=== PATIENT | female | born 1975 | race Caucasian/White ===

== ENCOUNTER 2019-07-21 14:05 | Emergency (ER) | payer BC, OTHER ==
--- NOTE | 2019-07-21 14:56 | ED ---
Neck Pain - HPI Summary HPI Summary: 43-year-old female presents to the emergency department today complaining of some nontender neck pain after falling off her horse and landing on her neck 2 days ago. Patient denies loss of consciousness or amnesia and was ambulatory after the event. She states the pain is Worse since the accident and has began to radiate down her right arm which is causing numbness and weakness. Patient has been taking ibuprofen prior to arrival for pain. Patient has full range of motion of her right arm and decreased range of motion of her neck due to pain. Patient is neurovascularly intact. Family history and surgical history noncontributory. Patient denies fever, chest pain, abdominal pain, pain with urination, changes in vision, headache. - History of Current Complaint Chief Complaint: EDFall Stated Complaint: FALL NECK PAIN Time Seen by Provider: 07/21/19 14:43 Hx Obtained From: Patient Onset/Duration Of Injury/Symptoms: Days Mechanism Of Injury: Blunt Trauma Timing: Constant, Lasting Days Onset/Duration: Started days ago Severity Initially: Severe Severity Currently: Severe Pain Intensity: 7 Pain Scale Used: 0-10 Numeric Location: Discrete At: - neck Character: Aching, Stiff Aggravating Factors: Movement, Medication Alleviating Factors: Position, OTC Meds Associated Signs & Symptoms: Positive: Weakness, Paresthesia. Negative: Swelling, Redness, Fever, Nuchal Rigity, Headache - Allergies/Home Medications Allergies/Adverse Reactions: Allergies Allergy/AdvReac Type Severity Reaction Status Date / Time latex Allergy Rash Verified 07/21/19 15:50 PMH/Surg Hx/FS Hx/Imm Hx Respiratory History: Reports: Hx Asthma Infectious Disease History: No Infectious Disease History: Denies: Traveled Outside the [place] in Last 30 Days - Social History Alcohol Use: None Substance Use Type: Reports: None Smoking Status (MU): Never Smoked Tobacco Have You Smoked in the Last Year: No Review of Systems Constitutional: Negative Eyes: Negative ENT: Negative Cardiovascular: Negative Respiratory: Negative Gastrointestinal: Negative Genitourinary: Negative Positive: Arthralgia, Myalgia, Decreased ROM Skin: Negative Positive: Paresthesia. Negative: Headache, Weakness, Slurred Speech Psychological: Normal All Other Systems Reviewed And Are Negative: Yes Physical Exam - Summary Physical Exam Summary: Inspection of the neck reveals mild edema near the right trapezius muscle and paraspinal muscles. No evidence of ecchymosis or gross deformity noted. Patient has no midline tenderness throughout the cervical or thoracic spine. Patient has full range of motion in the shoulders and upper shoulders bilaterally. Patient has decreased range of motion in the neck due to pain. Patient is neurologically intact. Triage Information Reviewed: Yes Vital Signs On Initial Exam: Initial Vitals Temp Pulse Resp BP Pulse Ox 97.5 F 70 14 121/71 99 07/21/19 14:08 07/21/19 14:08 07/21/19 14:08 07/21/19 14:08 07/21/19 14:08 Vital Signs Reviewed: Yes Appearance: Positive: Well-Appearing, No Pain Distress, Well-Nourished Skin: Positive: Warm, Skin Color Reflects Adequate Perfusion Eyes: Positive: EOMI, LOIS ENT: Positive: Hearing grossly normal Respiratory/Lung Sounds: Positive: Clear to Auscultation, Breath Sounds Present Cardiovascular: Positive: RRR, S1, S2 Neurological: Positive: Sensory/Motor Intact, Alert, Oriented to Person Place, Time, Normal Gait, Speech Normal Psychiatric: Positive: Normal AVPU Assessment: Alert Procedures - Sedation Patient Received Moderate/Deep Sedation with Procedure: No Diagnostics - Vital Signs Vital Signs Temp Pulse Resp BP Pulse Ox 07/21/19 14:08 97.5 F 70 14 121/71 99 - Laboratory Lab Statement: Any lab studies that have been ordered have been reviewed, and results considered in the medical decision making process. Neck Course/Dx - Course Course Of Treatment: Patient seen and examined her vitals are stable and she is afebrile. CT scan of the cervical spine without contrast found no evidence of fracture. Patient likely suffering from muscle strain. Patient was given IM Toradol as well as a trigger point injection. Trigger point injection was done using 40 mg of solumedrol, 5 mL's of 0.5% bupivacaine, 2ml of 1% lidocaine without epinephrine. The skin was cleaned with antiseptic and then pain ease spray was used prior to injection with a 21-gauge needle. Medicine was injected and then the muscle was massaged. Patient endorsed immediate pain relief. Patient was given instructions on further care as an outpatient and told to follow up with her primary doctor in 5-7 days. Patient agrees this plan. - Diagnoses Differential Dx/HQI/PQRI: Positive: Cervical Fracture, Sprain, Strain Provider Diagnoses: Cervical muscle strain Discharge ED - Sign-Out/Discharge Documenting (check all that apply): Patient Departure - Discharge Plan Condition: Stable Disposition: HOME Patient Education Materials: Neck Pain (ED) Referrals: Hank Hubbard MD [Primary Care Provider] - 5 Days Additional Instructions: You were seen in the emergency department today for neck pain. Please follow up with your PCP in 5 days for further evaluation and management of your injury. * Ibuprofen 600mg three times daily with meals for pain. * Rest the involved area, but not too long. You may need to be off your injury for some time to allow for healing, however excessive immobilization of joints can lead to stiffness and delay healing time. Early mobilization is encouraged if it is pain-free. * Ice: Not directly on the skin. Cover with a towel. Apply ice no more than 30 minutes at a time - Billing Disposition and Condition Condition: STABLE Disposition: Home
[2019-07-21] MEDS ORDERED: Lidocaine 1% INJ* 10 MG/ML 30 ML SDV ONE (15:40)
[2019-07-21] MEDS ORDERED: Bupivacaine 0.5%* 50 ML MDV VIAL ONE (15:41)
[2019-07-21] MEDS ORDERED: methylPREDNISolone SOD 40 MG* 1 ML VIAL IM SCH (16:00)
[2019-07-21] MEDS: Ketorolac *IM* INJ* 60 MG/2 ML VIAL IM ONE (16:11)
[2019-07-21 18:09] VITALS: BP 128/74
== END 2019-07-21 20:00 | disposition home or self-care (01) ==
LOC: ED 14:05
DX: S16.1XXA Strain of muscle, fascia and tendon at neck level, initial encounter (principal); V80.010A Animal-rider injured by fall from or being thrown from horse in noncollision accident, initial encounter; Y93.52 Activity, horseback riding; Y92.9 Unspecified place or not applicable; Z91.040 Latex allergy status
CPT/HCPCS: 72125; 96372; 99282; J1885; J2920